=== PATIENT | male | born 2000 | race African-American/Black ===

== ENCOUNTER 2021-10-22 09:33 | Emergency (ER) | payer BC ==
[2021-10-22 10:02] VITALS: BP 102/52; PULSE 72; TEMP 97.7; BMI 24.1
[2021-10-22] MEDS ORDERED: FAMOTIDINE 20 MG/50 ML IVPB 20 MG/50 ML MG IVPB ONE ×2 (12:15→12:19)
[2021-10-22] MEDS ORDERED: SODIUM CHLORIDE 0.9% 500 ML INFUS.BAG IV ONE (12:15)
[2021-10-22] MEDS ORDERED: MAG HYDROX/AL HYDROX/SIMETH 30 ML UNIT-DOSE CUP PO ONE (12:15)
[2021-10-22] MEDS ORDERED: MAG HYDROX/AL HYDROX/SIMETH 30 ML UNIT-DOSE CUP ONE (12:19)
[2021-10-22] MEDS ORDERED: DICYCLOMINE HCL 20 MG TABLET PO ONE (14:03)
[2021-10-22 14:21] LABS: BASO % 0.7 % (0-2.0); EOS % 3.6 % (0-4.5); HEMATOCRIT 38.2 % (35.4-49); HEMOGLOBIN 12.2 GM/dL (11.7-16.9); LYMPH % 41.5 % (8-40); MCH 25.6 pg (25.7-33.7); MONO % 9.4 % (3.8-10.2); NEUT % 44.8 % (42.8-82.8); PLATELET COUNT 131 10^3/uL (134-434); RBC 4.78 M/mm3 (4.00-5.60); WHITE BLOOD COUNT 4.7 K/mm3 (4.0-10.0)
[2021-10-22 14:26] LABS: PH,URINE 6.5 (5.0-8.0); URINE APPEARANCE CLEAR; URINE BILIRUBIN NEGATIVE (NEGATIVE); URINE COLOR YELLOW; URINE GLUCOSE (UA) NEGATIVE (NEGATIVE); URINE KETONE NEGATIVE (NEGATIVE); URINE LEUK ESTERASE NEGATIVE (NEGATIVE); URINE NITRITE NEGATIVE (NEGATIVE); URINE PROTEIN NEGATIVE (NEGATIVE)
[2021-10-22] MEDS ORDERED: DICYCLOMINE HCL 10 MG CAPSULE ONE (14:32)
[2021-10-22 14:43] LABS: ALBUMIN 4.3 g/dl (3.4-5.0); BLOOD UREA NITROGEN 13.4 mg/dL (7-18); CALCIUM 9.2 mg/dL (8.5-10.1)
[2021-10-22 14:46] LABS: CREATININE 0.8 mg/dL (0.55-1.3)
[2021-10-22 14:48] LABS: BILIRUBIN,TOTAL 0.4 mg/dL (0.2-1); TOT PROT 7.5 g/dl (6.4-8.2)
== END 2021-10-22 14:59 | disposition home or self-care (01) ==
LOC: JERFT 09:33
PROC: 3E033GC Introduction of Other Therapeutic Substance into Peripheral Vein, Percutaneous Approach (ICD-10-PCS; principal; 2021-10-22)
DX: R10.84 Generalized abdominal pain (principal)
CPT/HCPCS: 36415; 80053; 81003; 83690; 85025; 99284-25

== ENCOUNTER 2024-03-01 21:20 | Emergency (ER) | payer BC ==
[2024-03-01 21:28] VITALS: BP 148/72; PULSE 118; RESP 20; TEMP 97.8; BMI 24.3
[2024-03-01] MEDS ORDERED: ONDANSETRON 4 MG/2 ML VIAL ONE (21:39)
[2024-03-01] MEDS ORDERED: ACETAMINOPHEN INJECTION 100 ML IVPB ONE (21:43)
[2024-03-01] MEDS: SODIUM CHLORIDE 1,000 ML IV STA (21:51)
[2024-03-01] MEDS: ACETAMINOPHEN 1000 MG/100 ML BAG IVPB ONE (21:51)
[2024-03-01] MEDS: ONDANSETRON 4 MG/2 ML VIAL IVPUSH ONE (21:51)
[2024-03-01 22:09] LABS: BASO % 0.3 % (0-2.0); EOS % 0.1 % (0-4.5); HEMATOCRIT 39.3 % (35.4-49); HEMOGLOBIN 12.8 GM/dL (11.7-16.9); LYMPH % 2.2 % (8-40); MCH 25.7 pg (25.7-33.7); MCHC 32.7 g/dl (32.0-35.9); MEAN CELL VOLUME 78.7 fl (80-96); MEAN PLT VOLUME 9.4 fl (7.5-11.1); MONO % 2.4 % (3.8-10.2); PLATELET COUNT 135 10^3/uL (134-434); RBC 4.99 M/mm3 (4.00-5.60); RDW 15.8 % (11.9-15.9); WHITE BLOOD COUNT 12.4 K/mm3 (4.0-10.0)
[2024-03-01 22:27] LABS: POTASSIUM 4.2 mmol/L (3.5-5.1)
[2024-03-01 22:29] LABS: ANISOCYTOSIS 2+; MACROCYTOSIS 2+; MAGNESIUM 1.5 mg/dL (1.8-2.4); TARGET CELLS 2+; TEAR DROP CELLS 1+
[2024-03-01 22:31] LABS: ALBUMIN 4.4 g/dl (3.4-5.0); BLOOD UREA NITROGEN 16.9 mg/dL (7-18)
[2024-03-01 22:33] LABS: PHOSPHOROUS 2.4 mg/dL (2.5-4.9)
[2024-03-01] MEDS ORDERED: FAMOTIDINE 20 MG/50 ML IVPB 20 MG/50 ML MG IVPB ONE (22:34)
[2024-03-01] MEDS ORDERED: MAGNESIUM SULFATE IN WATER 2 GM/50 ML IVPB IVPB ONE (22:34)
[2024-03-01 22:35] LABS: BILIRUBIN,TOTAL 1.4 mg/dL (0.2-1); TOT PROT 7.8 g/dl (6.4-8.2)
[2024-03-01] MEDS: morphine CARPU-JECT 2 MG/1 ML DISP.SYRIN IVPUSH ONE (22:42)
[2024-03-01] MEDS: MAGNESIUM SULF 50% (8.12 MEQ/2 ML-1 GM VIAL) IVPB ONE (22:42)
[2024-03-01] MEDS: FAMOTIDINE 20 MG/50 ML IVPB 20 MG/50 ML MG IVPB ONE (22:43)
[2024-03-01 22:48] LABS: CALCIUM 9.8 mg/dL (8.5-10.1)
[2024-03-01] MEDS ORDERED: NAPH,MB-DB/K PH,MBDB POWDER PACKET ONE (23:27)
[2024-03-01] MEDS: NAPH,MB-DB/K PH,MBDB POWDER PACKET PO ONE (23:29)
[2024-03-02] MEDS: LACTATED RINGERS SOLUTION 1,000 ML/1,000 ML INFUS.BAG IV SCH (00:06)
== END 2024-03-02 01:21 | disposition home or self-care (01) ==
LOC: JER 21:20
PROC: 3E033GC Introduction of Other Therapeutic Substance into Peripheral Vein, Percutaneous Approach (ICD-10-PCS; principal; 2024-03-01)
PROC: 3E030NZ Introduction of Analgesics, Hypnotics, Sedatives into Peripheral Vein, Open Approach (ICD-10-PCS; 2024-03-01)
PROC: 3E030GC Introduction of Other Therapeutic Substance into Peripheral Vein, Open Approach (ICD-10-PCS; 2024-03-01)
PROC: 3E030GC Introduction of Other Therapeutic Substance into Peripheral Vein, Open Approach (ICD-10-PCS; 2024-03-01)
PROC: 3E030GC Introduction of Other Therapeutic Substance into Peripheral Vein, Open Approach (ICD-10-PCS; 2024-03-01)
PROC: 3E0337Z Introduction of Electrolytic and Water Balance Substance into Peripheral Vein, Percutaneous Approach (ICD-10-PCS; 2024-03-01)
DX: R10.84 Generalized abdominal pain (principal); R11.2 Nausea with vomiting, unspecified; M79.10 Myalgia, unspecified site; R00.0 Tachycardia, unspecified; B34.9 Viral infection, unspecified
CPT/HCPCS: 36415; 76705-TC; 80053; 82962; 83690; 83735; 84100; 85025; 93005; 93010; 99285-25; J0131